=== PATIENT | female | born 1985 | race Native Hawaiian/Other Pacific Islander ===

== ENCOUNTER 2021-10-08 22:30 | Observation (INO) | payer SELFPAY ==
[~2021-10-08] VITALS: Ht 160 cm; Wt 54.0 kg
[2021-10-08 22:53] VITALS: BP 94/68
[2021-10-09] MEDS ORDERED: PNV1TABL5 PO (00:01)
[2021-10-09] MEDS ORDERED: ACETAMINOPHEN 325 MG TAB ONE ×2 (01:39→01:47)
[2021-10-09] MEDS ORDERED: ACETAMINOPHEN 325 MG TAB PO PRN (01:40)
== END 2021-10-09 02:23 | disposition home or self-care (01) ==
LOC: EDBD → MLD 22:30
PROVIDERS: ADMIT Obstetrics & Gynecology; ATTEND Obstetrics & Gynecology
DX: O62.9 Abnormality of forces of labor, unspecified (principal); Z20.822 Contact with and (suspected) exposure to COVID-19; O26.893 Other specified pregnancy related conditions, third trimester; R51.9 Headache, unspecified; Z3A.40 40 weeks gestation of pregnancy
CPT/HCPCS: 76805; 87426; G0378; Q0092; 59025; 81000

== ENCOUNTER 2021-10-14 21:35 | Inpatient (IN) | payer MEDICAID ==
[~2021-10-14] VITALS: Ht 160 cm; Wt 49.4 kg
[~2021-10-14 21:35] MED LIST: PNV1TABL5 PO
[2021-10-14 22:31] VITALS: BP 105/62
[2021-10-14 23:15] LABS: APPEARANCE,URINE CLEAR (CLEAR); BILIRUBIN,URINE NEGATIVE (NEGATIVE); BLOOD, URINE NEGATIVE (NEGATIVE); COLOR,URINE YELLOW (YELLOW); LEUKOCYTE ESTERASE ,URINE TRACE (NEGATIVE); NITRITE, URINE NEGATIVE (NEGATIVE); PH,URINE 6.5 (5.0-9.0); UGLUCOSE NEGATIVE (NEGATIVE)
[2021-10-14 23:18] LABS: BASOPHILS % (AUTO) 0.5 % (0.0-2.0); EOSINOPHILS # (AUTO) 0.1 K/uL (0-0.4); EOSINOPHILS % (AUTO) 1.3 % (0.0-4.0); HEMATOCRIT 33.4 % (36-48); HEMOGLOBIN 11.2 g/dL (12.0-16.0); LYMPHOCYTES # (AUTO) 1.7 K/uL (2.5-16.5); LYMPHOCYTES % (AUTO) 31.4 % (20.5-51.1); MEAN CORPUSCULAR HEMOGLOBIN 32 pg (27-31); MEAN CORPUSCULAR HGB CONC 34 g/dL (33-37); MEAN CORPUSCULAR VOLUME 95.5 fL (80-94); MONOCYTES # (AUTO) 0.4 K/uL (0.8-1.0); MONOCYTES % (AUTO) 6.6 % (1.7-9.3); NEUTROPHILS # (AUTO) 3.3 K/uL (1.8-7.7); NEUTROPHILS % (AUTO) 60.2 % (42.2-75.2); PLATELET COUNT (AUTO) 107 K/uL (140-450); RED CELL DISTRIBUTION WIDTH 13.6 % (11.6-13.7); WHITE BLOOD COUNT (AUTO) 5.5 K/uL (4.8-10.8)
[2021-10-14 23:32] LABS: PROTHROMBIN TIME 8.9 secs (10.8-13.4)
[2021-10-14 23:34] LABS: ALBUMIN 2.7 g/dL (3.4-5.0); ANION GAP 12.7 (8-16); CARBON DIOXIDE 23.5 mmol/L (21-32); CREATININE 0.5 mg/dL (0.6-1.3); POTASSIUM 4.2 mmol/L (3.5-5.1); TOTAL BILIRUBIN 0.4 mg/dL (0.0-1.0)
[2021-10-14 23:40] LABS: RBC,URINE 0-5 /HPF (0-5)
[2021-10-15] MEDS: LACTATED RINGERS 1,000 ML IV SCH ×3 (00:39→23:44)
[2021-10-15] MEDS ORDERED: METHYLERGONOVINE 0.2 MG/ML AMP IM PRN (01:25)
[2021-10-15] MEDS ORDERED: LACTATED RINGERS 500 ML IV ONE (01:25)
[2021-10-15] MEDS ORDERED: CARBOPROST 250 MCG/ML AMP IM PRN (01:25)
[2021-10-15] MEDS ORDERED: AMPICILLIN 2,000 MG VIAL ONE (04:46)
[2021-10-15] MEDS ORDERED: AMPICILLIN 2,000 MG in NACL 0.9% 100 ML IV ONE (05:00)
[2021-10-15 05:46] LABS: BARBITURATE, URINE NEGATIVE ng/ml (NEG <=200); BENZODIAZEPINE, URINE NEGATIVE ng/mL (NEG <=200); CANNABINOID, URINE NEGATIVE ng/mL (NEG <=50); COCAINE, URINE NEGATIVE ng/mL (NEG <=300); OPIATE, URINE NEGATIVE ng/mL (NEG <=2000); PHENCYCLIDINE SCREEN,URINE NEGATIVE ng/mL (NEG <=25)
--- NOTE | 2021-10-15 08:30 | NUR ---
PATIENT HAS BEEN SCREENED AND CATEGORIZED LOW NUTRITION RISK. PATIENT WILL BE SEEN WITHIN 7 DAYS OF ADMISSION. 10/21/[address]
[2021-10-15] MEDS ORDERED: OXYTOCIN 20 UNITS in LACTATED RINGERS 1,000 ML IV SCH (08:50)
[2021-10-15] MEDS ORDERED: AMPICILLIN 1,000 MG VIAL ONE ×4 (08:57→22:24)
[2021-10-15] MEDS: AMPICILLIN 1,000 MG in NACL 0.9% 50 ML IV SCH ×3 (09:06→18:06)
[2021-10-15] MEDS ORDERED: OXYTOCIN 20 UNITS/LR PREMIX 1,000 ML IV ONE (09:22)
[2021-10-15] MEDS ORDERED: fentaNYL citrate 0.05 MG/ML VIAL ONE (22:53)
[2021-10-15] MEDS ORDERED: ROPIVACAINE 0.2%/NS PREMIX 200 ML EPI ONE (22:53)
[2021-10-16] MEDS ORDERED: METHYLERGONOVINE 0.2 MG/ML AMP IM PRN (02:10)
[2021-10-16] MEDS ORDERED: METHYLERGONOVINE 0.2 MG TAB PO PRN (02:10)
[2021-10-16] MEDS ORDERED: BENZOCAINE/MENTHOL 20%-0.5% 60 GM CAN TP PRN (02:10)
[2021-10-16] MEDS ORDERED: MEASLES, MUMPS, AND RUBELLA 1 VIAL SQVAC ONE (02:10)
[2021-10-16] MEDS ORDERED: OXYTOCIN 10 UNITS/ML VIAL IM PRN (02:10)
[2021-10-16] MEDS ORDERED: OXYTOCIN 20 UNITS/LR PREMIX 1,000 ML IV ONE (02:39)
[2021-10-16] MEDS: IBUPROFEN 800 MG TAB PO PRN ×2 (02:42→20:22)
[2021-10-17 14:57] LABS: HEMATOCRIT 33.9 % (36-48); HEMOGLOBIN 11.3 g/dL (12.0-16.0)
== END 2021-10-17 21:45 | disposition home or self-care (01) | DRG 560 ==
LOC: MLD 21:35 → EDBD 10-15 05:26 → OBSVTOIN 10-15 05:26 → MFCC 10-16 05:24
PROVIDERS: ADMIT Obstetrics & Gynecology; ATTEND Obstetrics & Gynecology
PROC: 10D07Z6 Extraction of Products of Conception, Vacuum, Via Natural or Artificial Opening (ICD-10-PCS; principal; 2021-10-16)
PROC: 0KQM0ZZ Repair Perineum Muscle, Open Approach (ICD-10-PCS; 2021-10-16)
PROC: 3E0R3BZ Introduction of Anesthetic Agent into Spinal Canal, Percutaneous Approach (ICD-10-PCS; 2021-10-16)
PROC: 00HU33Z Insertion of Infusion Device into Spinal Canal, Percutaneous Approach (ICD-10-PCS; 2021-10-16)
DX: O99.824 Streptococcus B carrier state complicating childbirth (principal); Z37.0 Single live birth; D69.6 Thrombocytopenia, unspecified; O32.1XX0 Maternal care for breech presentation, not applicable or unspecified; O99.02 Anemia complicating childbirth; O76 Abnormality in fetal heart rate and rhythm complicating labor and delivery; O99.12 Other diseases of the blood and blood-forming organs and certain disorders involving the immune mechanism complicating childbirth; D64.9 Anemia, unspecified; Z20.822 Contact with and (suspected) exposure to COVID-19; O70.1 Second degree perineal laceration during delivery; Z3A.40 40 weeks gestation of pregnancy
CPT/HCPCS: G0378 ×3; 36415; 51702; 76805; 80053; 80305; 81001; 85018; 85025; 85610; 85730; 86592; 86762; 86886; 86900; 86901; 87086; 87340; 87653-90; J0290; J2590; J2795; J3010; Q0092